=== PATIENT | male | born 1955 | race Caucasian/White ===

== ENCOUNTER 2016-11-17 13:04 | Inpatient (IN) | payer BC ==
[~2016-11-17] VITALS: Ht 170.2 cm; Wt 77.1 kg
[2016-11-17] MEDS ORDERED: GLUCAGON,HUMAN RECOMBINANT 1 MG/VIAL VIAL IV ONE (13:30)
[2016-11-17] MEDS ORDERED: ONDANSETRON HCL/PF - ER 4 MG/2 ML VIAL IV ONE (13:30)
[2016-11-17] MEDS ORDERED: GLUCAGON,HUMAN RECOMBINANT 1 MG/VIAL VIAL ONE (13:46)
[2016-11-17] MEDS ORDERED: ONDANSETRON HCL/PF 4 MG/2 ML VIAL ONE (13:46)
[2016-11-17 14:45] LABS: BASOPHILS % (AUTO) 0.2 % (0.0-2.0); DIFF TOTAL % 100 %; EOSINOPHILS # (AUTO) 0.1 /CMM (0.0-0.7); EOSINOPHILS % (AUTO) 0.6 % (0.0-6.0); HEMATOCRIT 34 % (39-51); HEMOGLOBIN 11.3 g/dL (13.5-17.5); LYMPHOCYTES # (AUTO) 0.5 /CMM (0.8-4.8); LYMPHOCYTES % (AUTO) 5.3 % (20.0-44.0); MEAN CORPUSCULAR HEMOGLOBIN 30 PG (26.0-33.0); MEAN CORPUSCULAR HGB CONC 33 g/dl (31.0-36.0); MEAN CORPUSCULAR VOLUME 91 fL (80-96); MONOCYTES # (AUTO) 0.5 /CMM (0.1-1.30); MONOCYTES % (AUTO) 6.2 % (2.0-12.0); NEUTROPHILS # (AUTO) 7.6 /CMM (1.8-8.9); NEUTROPHILS % (AUTO) 87.7 % (43.0-81.0); PLATELET COUNT (AUTO) 210 /CMM (150-450); RED BLOOD CELL COUNT(AUTO) 3.79 MIL/uL (4.5-6.0); WHITE BLOOD COUNT (AUTO) 8.7 K/uL (4.3-11.0)
[2016-11-17] MEDS ORDERED: ROSU40TA PO (14:48)
[2016-11-17] MEDS ORDERED: HYDR12.5 PO (14:48)
[2016-11-17] MEDS ORDERED: BENA10TA2 PO (14:48)
[2016-11-17] MEDS ORDERED: PROB500T9 PO (14:48)
[2016-11-17] MEDS ORDERED: FENO160T PO (14:48)
[2016-11-17 14:55] LABS: CALCIUM, SERUM 9.7 mg/dL (8.5-10.1); CREATININE 1.5 mg/dL (0.6-1.3)
[2016-11-17] MEDS ORDERED: IV NS 0.9% 1,000 ML BAG IV ONE (15:00)
[2016-11-17 15:01] LABS: ALBUMIN 3.8 g/dL (3.4-5.0); BILIRUBIN,DIRECT 0.2 mg/dL (0.0-0.2); BILIRUBIN,TOTAL 0.6 mg/dL (0.2-1.0); INDIRECT BILIRUBIN 0.4 mg/dL (0.0-1.1); TOTAL PROTEIN, SERUM 8.4 g/dL (6.4-8.2)
[2016-11-17 15:07] LABS: INR 1.05 (0.87-1.13)
[2016-11-17] MEDS ORDERED: IV NS 0.9% 1,000 ML ONE (15:10)
[2016-11-17] MEDS ORDERED: IV SET PRIMARY 1 EA INFUS.SET MC ONE (15:10)
[2016-11-17 16:10] VITALS: BP 123/76
[2016-11-17] MEDS ORDERED: IV D5/0.45 NACL 1,000 ML IV PRN (16:37)
[2016-11-17] MEDS ORDERED: INSULIN REGULAR, HUMAN 100 UNIT/ML 3 ML VIAL SQ PRN (17:00)
[2016-11-17] MEDS ORDERED: DEXTROSE 50%-WATER 50 ML DISP.SYRIN IV PRN (17:00)
[2016-11-17] MEDS ORDERED: Z GUARD REMEDY 2 OZ OINT TP PRN (17:00)
[2016-11-17] MEDS ORDERED: ONDANSETRON HCL/PF 4 MG/2 ML VIAL IVP PRN (17:00)
[2016-11-17] MEDS ORDERED: PANTOPRAZOLE 40 MG VIAL IV SCH (17:00)
[2016-11-17] MEDS ORDERED: ACETAMINOPHEN 325 MG TABLET PO PRN (17:00)
[2016-11-17] MEDS ORDERED: IV SET PRIMARY PUMP SET 1 EA INFUS.SET MC ONE (17:07)
[2016-11-17] MEDS: BLOOD SUGAR DIAGNOSTIC 1 EACH STRIP IN SCH ×2 (17:16→23:21)
[2016-11-17] MEDS ORDERED: SUCCINYLCHOLINE CHLORIDE 20 MG/ML VIAL ONE (17:43)
[2016-11-17] MEDS ORDERED: ANESTHESIA TRAY IN PYXIS 1 EA TRAY MC ONE (18:19)
[2016-11-17 18:34] LABS: AMYLASE 76 U/L (25-115)
[2016-11-17 18:35] VITALS: BP 113/72
[2016-11-17 18:47] LABS: CREATINE KINASE MB 1.7 ng/mL (0-3.6)
[2016-11-17 20:00] VITALS: BP 114/65
[2016-11-18] MEDS: BLOOD SUGAR DIAGNOSTIC 1 EACH STRIP IN SCH ×2 (05:42→11:52)
[2016-11-18 06:42] LABS: BASOPHILS % (AUTO) 0.3 % (0.0-2.0); DIFF TOTAL % 100 %; EOSINOPHILS # (AUTO) 0.1 /CMM (0.0-0.7); EOSINOPHILS % (AUTO) 2.3 % (0.0-6.0); HEMATOCRIT 29 % (39-51); HEMOGLOBIN 9.6 g/dL (13.5-17.5); LYMPHOCYTES # (AUTO) 0.7 /CMM (0.8-4.8); LYMPHOCYTES % (AUTO) 15.5 % (20.0-44.0); MEAN CORPUSCULAR HEMOGLOBIN 30 PG (26.0-33.0); MEAN CORPUSCULAR HGB CONC 33 g/dl (31.0-36.0); MEAN CORPUSCULAR VOLUME 90 fL (80-96); MONOCYTES # (AUTO) 0.6 /CMM (0.1-1.30); NEUTROPHILS # (AUTO) 3.1 /CMM (1.8-8.9); NEUTROPHILS % (AUTO) 68.9 % (43.0-81.0); PLATELET COUNT (AUTO) 174 /CMM (150-450); RED BLOOD CELL COUNT(AUTO) 3.19 MIL/uL (4.5-6.0); WHITE BLOOD COUNT (AUTO) 4.6 K/uL (4.3-11.0)
[2016-11-18 06:50] LABS: BILIRUBIN,TOTAL 0.6 mg/dL (0.2-1.0); CALCIUM, SERUM 8.7 mg/dL (8.5-10.1); CREATININE 1.5 mg/dL (0.6-1.3); POTASSIUM 3.9 mmol/L (3.5-5.1)
[2016-11-18 06:53] LABS: INR 1.13 (0.87-1.13); PROTHROMBIN TIME 12.2 SECS (9.5-12.7)
[2016-11-18 06:59] LABS: PREALBUMIN 20.5 MG/DL (18.0-35.7); THYROID STIMULATING HORMONE 0.941 uIU/mL (0.358-3.74)
[2016-11-18] MEDS ORDERED: PANTOPRAZOLE 40 MG TABLET.DR PO SCH ×2 (07:30)
[2016-11-18 08:00] VITALS: BP_SYST 113; BP_SYST 131; BP_DIAS 73
[2016-11-18] MEDS ORDERED: ASPI81TA2 PO (09:45)
[2016-11-18] MEDS ORDERED: SECONDARY IV SET 1 EA INFUS.SET MC ONE (09:58)
[2016-11-18] MEDS: Magnesium 1GM/D5W 100ML PREMIX 100 ML IV SCH ×4 (10:04→13:11)
[2016-11-18 10:20] LABS: ERYTHROCYTE SEDIMENTATION RATE 65 MM/HR (0-20)
[2016-11-20 15:21] LABS: *CARD ANTI-CARDIOLIPIN AB IgA <9 APL U/mL (0-11); *CARD ANTI-CARDIOLIPIN AB IgG <9 GPL U/mL (0-14); *CARD ANTI-CARDIOLIPIN AB IgM <9 MPL U/mL (0-12)
== END 2016-11-18 14:15 | disposition home or self-care (01) | DRG 391 ==
LOC: ER 13:07 → MED 15:58
PROVIDERS: ADMIT Internal Medicine; ATTEND Internal Medicine
PROC: 0DB18ZX Excision of Upper Esophagus, Via Natural or Artificial Opening Endoscopic, Diagnostic (ICD-10-PCS; principal; 2016-11-17 17:59)
PROC: 0DB28ZX Excision of Middle Esophagus, Via Natural or Artificial Opening Endoscopic, Diagnostic (ICD-10-PCS; principal; 2016-11-17 17:59)
PROC: 0DB48ZX Excision of Esophagogastric Junction, Via Natural or Artificial Opening Endoscopic, Diagnostic (ICD-10-PCS; principal; 2016-11-17 17:59)
DX: K22.2 Esophageal obstruction (principal); N17.0 Acute kidney failure with tubular necrosis; K22.0 Achalasia of cardia; M34.9 Systemic sclerosis, unspecified; E11.22 Type 2 diabetes mellitus with diabetic chronic kidney disease; I12.9 Hypertensive chronic kidney disease with stage 1 through stage 4 chronic kidney disease, or unspecified chronic kidney disease; N18.3 Chronic kidney disease, stage 3 (moderate); E78.5 Hyperlipidemia, unspecified; K20.0 Eosinophilic esophagitis; R13.10 Dysphagia, unspecified; M10.9 Gout, unspecified; K44.9 Diaphragmatic hernia without obstruction or gangrene; D63.8 Anemia in other chronic diseases classified elsewhere
CPT/HCPCS: 36415; 70360-TC; 71010-TC; 76705-TC; 80048-TC; 80053-TC; 80061-TC; 80076-TC; 82150-TC; 82553-TC; 82746; 82962-TC; 83540-TC; 83690-TC; 83735-TC; 84100-TC; 84134-TC; 84443-TC; 85025-TC; 85652-TC; 85730-TC; 86147; 86431-TC; 86850-TC; 87040-TC; 87081-TC; 87086-TC; 88305-TC; 88313-TC; 88342; A4606; C9113; J0330; J1610; J1815; J2405; J3475; J7030; Z7610